=== PATIENT | female | born 1995 | race Caucasian/White ===

== ENCOUNTER 2016-07-12 20:11 | Emergency (ER) | payer SELFPAY ==
--- NOTE | 2016-07-15 07:04 | ER ---
ADMIT: 07/12/2016 RM/LOC: ER [facility] MR#: [id number] [facility] [address] [place] [id number] ABRAHAM BENNETT [address] [place] [address] Emergency Room Report SEX: F AGE: 21 : 1995 DATE: 07/12/2016 ADDENDUM: CHIEF COMPLAINT: Cough, headache, and sore throat. HISTORY OF PRESENT ILLNESS: This is a 21-year-old who did develop these symptoms just last night. Her temp was as high as 101. She has been taking Motrin all day. It feels better. Her symptoms are worse in the morning when she wakes up. On examination, there really are not any positive findings except for some postpharyngeal drip. CLINICAL IMPRESSION: Viral syndrome. DISPOSITION: Told to push fluids. Use Motrin or Tylenol for pain, and follow up if worsen. SOHA Perez / Jose Francois MD / yonas JOB #: [id number] CC: Jose Francois MD, Attending Physician Solomon Beaulieu MD, Family Physician
== END 2016-07-12 20:45 | disposition home or self-care (01) ==
LOC: ER 20:11
DX: B34.9 Viral infection, unspecified (principal); Z98.890 Other specified postprocedural states

== ENCOUNTER 2016-09-03 21:30 | Emergency (ER) | payer BC | END 2016-09-04 01:10 | disposition home or self-care (01) | DX: R11.2 Nausea with vomiting, unspecified (principal); R19.7 Diarrhea, unspecified ==

== ENCOUNTER 2016-09-05 11:50 | Emergency (ER) | payer BC ==
--- NOTE | 2016-09-05 17:49 | ER ---
ADMIT: 09/05/2016 RM/LOC: ER [facility] MR#: [id number] [facility] [address] [place], [place] [id number] ABRAHAM BENNETT [address] [place] [address] Emergency Room Report SEX: F AGE: 21 : 1995 DATE: 09/05/2016 TIME: 11:50 hours. Please refer to my T-sheet for complete H and P. HISTORY OF PRESENT ILLNESS: Briefly, the patient comes in with 2-3 days of cramping, abdominal pain, and diarrhea. The nausea and vomiting, improved. She rates it 8/10. She was actually seen here 2 days ago, had a large workup including a fluid bolus, all of which worked out okay. She was sent home one Zofran. She has continued that but she is supposed to go to work today. Rates it 8/10. She is here for evaluation. PHYSICAL EXAMINATION: VITAL SIGNS: Stable. Her pulse is little rapid at 127. GENERAL: No acute distress. HEENT: Grossly normal. LUNGS: Clear. HEART: Regular but slightly tachy. ABDOMEN: Soft and mildly tender. No rebound or guarding. EMERGENCY DEPARTMENT COURSE: I had a long discussion and reviewed her labs from prior. She has had a gallbladder and appendix out. She looked very stable. I think she is actually improving so. ASSESSMENT: Gastroenteritis, getting toward the end plan. Continue Zofran, fluids, and return if worse. I did give her a work note today. Damien Rodriguez MD/ oynas JOB #: [id number] CC: Damien Rodriguez MD, Attending Physician Solomon Beaulieu MD, Family Physician
== END 2016-09-05 13:47 | disposition home or self-care (01) ==
LOC: ER 11:50
DX: K52.9 Noninfective gastroenteritis and colitis, unspecified (principal); Z90.49 Acquired absence of other specified parts of digestive tract